=== PATIENT | female | born 1960 | race Caucasian/White ===

== ENCOUNTER 2025-03-28 14:53 | Emergency (ER) | payer OTHER ==
[~2025-03-28] VITALS: Ht 162.6 cm; Wt 56.7 kg
[2025-03-28 15:02] VITALS: TEMP 98.4
[2025-03-28 16:01] LABS: BASOPHILS # (AUTO) 0.1 K/uL (0.0-0.2); BASOPHILS % (AUTO) 0.6 % (0.0-2.0); EOSINOPHILS % (AUTO) 0.2 % (0.0-6.0); HEMATOCRIT 44 % (33-45); HEMOGLOBIN 14.8 g/dL (11.5-14.8); LYMPHOCYTES # (AUTO) 2.1 K/uL (0.8-4.8); MEAN CORPUSCULAR HEMOGLOBIN 30 PG (26.0-33.0); MEAN CORPUSCULAR HGB CONC 34 g/dl (31.0-36.0); MEAN CORPUSCULAR VOLUME 88 fL (82-100); MONOCYTES # (AUTO) 1.4 K/uL (0.1-1.30); MONOCYTES % (AUTO) 8.8 % (2.0-12.0); NEUTROPHILS # (AUTO) 12.5 K/uL (1.8-8.9); NEUTROPHILS % (AUTO) 77.4 % (43.0-81.0); PLATELET COUNT (AUTO) 286 K/uL (150-450); RED BLOOD CELL COUNT(AUTO) 4.96 MIL/uL (4.0-5.2); RED CELL DISTRIBUTION WIDTH 13.7 % (11.5-15.0); WHITE BLOOD COUNT (AUTO) 16.2 K/uL (4.3-11.0)
[2025-03-28 16:07] LABS: CALCIUM, SERUM 8.8 mg/dL (8.5-10.1); CREATININE 0.9 mg/dL (0.6-1.3)
[2025-03-28 16:15] LABS: INR 0.96 (0.91-1.10); PARTIAL THROMBOPLASTIN TIME 29.3 SEC (24.3-34.3); PROTHROMBIN TIME 10.2 SECS (9.2-11.1)
[2025-03-28] MEDS ORDERED: IV NS 0.9% 250 ML IV ONE (16:16)
[2025-03-28] MEDS ORDERED: IOHEXOL-300 100 ML VIAL IV ONE (16:16)
[2025-03-28 17:15] VITALS: BP 111/78; O2SAT 98
[2025-03-28] MEDS ORDERED: TETRACAINE/BENZOCAINE/BUTAMBEN 56 GM SPRAY TP ONE (18:00)
[2025-03-28] MEDS ORDERED: dexaMETHasone SOD PHOSPHATE 10 MG/ML VIAL IV ONE (18:00)
[2025-03-28] MEDS ORDERED: CLINDAMYCIN 900 MG in IV D5W 100 ML IV ONE (18:00)
[2025-03-28] MEDS ORDERED: LIDOCAINE 1%-EPI 1:100,000 20 ML VIAL TP ONE (18:00)
[2025-03-28] MEDS ORDERED: dexaMETHasone SOD PHOSPHATE 0 ML ONE (18:11)
== END 2025-03-28 20:15 | disposition left against medical advice (07) ==
LOC: ER 15:08
DX: J39.1 Other abscess of pharynx (principal); Z88.0 Allergy status to penicillin; Z60.2 Problems related to living alone; Z86.2 Personal history of diseases of the blood and blood-forming organs and certain disorders involving the immune mechanism
CPT/HCPCS: 99285; 70491; 85025; 80048; 36415; 85730; J3490; J7060; J7030; J7050; Q9967; J1100